=== PATIENT | male | born 1995 | race Caucasian/White ===

== ENCOUNTER 2021-10-10 18:08 | Emergency (ER) | payer OTHER, MEDICAID, SELFPAY ==
[2021-10-10 18:09] VITALS: PULSE 105; O2SAT 96
--- NOTE | 2021-10-10 18:09 | DI.CT.S_ITS ---
PROCEDURE: CT HEAD/BRAIN WO CON INDICATIONS: change in seizure pattern TECHNIQUE: Noncontrast 4.5 mm thick angled axial sections acquired from the foramen magnum to the vertex, with coronal and sagittal reformats. For radiation dose reduction, the following was used: automated exposure control, adjustment of mA and/or kV according to patient size. COMPARISON: None. FINDINGS: Image quality: Excellent. CSF spaces: Basal cisterns are patent. No extra-axial fluid collections. Ventricles are normal in size and shape. Brain: No midline shift. No intracranial masses or hemorrhage. Barber-white matter interface is normal. Skull and face: Calvarium and visualized facial bones are intact, without suspicious lesions. Sinuses: Visualized sinuses and mastoids are clear. IMPRESSION: No acute intracranial abnormality. Dictated by: Hemanth Kay M.D. on 10/10/2021 at 18:36 Approved by: Hemanth Kay M.D. on 10/10/2021 at 18:36
--- NOTE | 2021-10-10 18:09 | ED_ITS ---
HPI - Seizure General Chief Complaint: Seizure Stated Complaint: seizure Time Seen by Provider: 10/10/21 18:09 History of Present Illness HPI Narrative: 26M nonsmoker with history of seizures presents by EMS for evaluation of a witnessed generalized tonic/clonic seizure lasting 60 seconds with a typical postictal phase. Patient has had rare seizures since he was young and does not take any medications. His cousin works with him and told the paramedics his last seizure was a few months ago. Patient denies any recent trauma, fever chills, nausea, vomiting or other illness. He denies any dietary or medication change in in fact takes no prescription medications. He does state that he has been drinking a bit more than usual but certainly has not cut back and has never had any withdrawal type symptoms or episodes. He is largely at his baseline on arrival. He denies any prodromal symptoms. Review of Systems Review of Systems Narrative: GENERAL: Denies chills, fatigue, malaise, fever, sweats. HEENT: Denies sinus pain, ear pain, sore throat, difficulty swallowing, dizzines s. RESPIRATORY: Denies dyspnea, cough, wheezing, hemoptysis, sputum. CARDIOVASCULAR: Denies chest pain, palpitations, orthopnea, edema, GASTROINTESTINAL: Denies nausea, vomiting, abdominal pain, diarrhea, constipation, melena. : Denies dysuria, frequency, incontinence, hematuria, urinary retention. MUSCULOSKELETAL: denies weakness, joint pain, or bony pain SKIN: Denies rash, skin lesions, or other NEUROLOGIC: See HPI PSYCHIATRIC: No concerning psychosocial issues. 12 point review of systems is negative except for those stated above Patient History Social History Smoking Status: Never smoker Exam Narrative Exam Narrative: GENERAL: [26 year old patient appears stated age. Well-developed patient, in mild distress. GCS 14 (slightly confused) HEAD: Atraumatic. Normocephalic. EYES: Pupils equal round and reactive. Extraocular motions intact. No scleral icterus. No injection or drainage. ENT: Nose without bleeding, purulent drainage. Throat without erythema, tonsillar hypertrophy or exudate. Airway patent. NECK: Trachea midline. Non tender CARDIOVASCULAR: Regular rate and rhythm without murmurs, gallops, or rubs. RESPIRATORY: Clear to auscultation. Breath sounds equal bilaterally. No wheezes, rales, or rhonchi. GASTROINTESTINAL: Abdomen soft, non-tender, nondistended. EXTREMITIES: No edema or joint tenderness. BACK: Nontender without deformity or crepitance. No flank tenderness. NEURO: AOx3. SKIN: No rash or erythema of visible areas Initial Vital Signs Initial Vital Signs: Vital Signs Pulse Rate 105 H 10/10/21 18:09 Pulse Oximetry 96 10/10/21 18:09 Course Orders Ordered: ED Orders 10/10/21 18:09 CT head/brain wo con Stat CMP [Comprehensive Metabolic Panel] Stat Complete Blood Count AUTO DIFF Stat Ethanol (ETOH) Stat Magnesium Stat Prolactin Stat Urine Drug Screen, Rapid Stat EKG-12 Lead Stat Vital Signs Vital signs: Vital Signs - 8 hr 10/10/21 18:11 Temperature 98.1 F Pulse Rate 113 H Respiratory Rate 16 Blood Pressure 142/78 H Pulse Oximetry 96 MDM - Seizure Lab Data Result diagrams: 10/10/21 18:09 10/10/21 18:09 Labs: Lab Results 10/10/21 10/10/21 Range/Units 18:09 18:09 WBC 12.8 H (4.5-11.0) X10^3/uL RBC 5.18 (4.5-5.9) X10^6/uL Hgb 15.9 (13.5-17.5) g/dL Hct 48.0 (41-53) % MCV 92.6 (80-100) fL MCH 30.6 (26-34) PG MCHC 33.0 (30-36) % RDW 13.2 (11.6-14.8) % Plt Count 327 (150-400) X10^3/uL Neut % (Auto) 61.2 (50-75) % Lymph % (Auto) 28.3 (25-40) % [place] % (Auto) 7.2 (3-14) % Eos % (Auto) 2.5 (2-4) % Baso % (Auto) 0.8 (0-2) % Neut # (Auto) 7800 H (5027-9176) /uL Lymph # (Auto) 3600 (9207-4360) /uL [place] # (Auto) 900 (0-900) /uL Eos # (Auto) 300 (0-450) /uL Baso # (Auto) 100 (0-100) /uL Sodium 143 (137-145) mmol/L Potassium 3.7 (3.4-5.1) mmol/L Chloride 103 (98-107) mmol/L Carbon Dioxide 14 L (22-32) mmol/L BUN 14 (9-20) mg/dL Creatinine 1.52 H (0.66-1.25) mg/dL Estimated GFR > 60 (>60) mL/min BUN/Creatinine Ratio 9.2 (6-22) Glucose 113 H (70-100) mg/dL Calcium 9.7 (8.4-10.2) mg/dL Magnesium 2.0 (1.6-2.3) mg/dL Total Bilirubin 0.7 (0.2-1.3) mg/dL AST 36 (17-59) IU/L ALT 24 (<50) IU/L Alkaline Phosphatase 81 (38-126) U/L Total Protein 9.5 H (6.3-8.2) g/dL Albumin 5.4 H (3.5-5.0) g/dL Globulin 4.1 (1.7-4.1) g/dL Albumin/Globulin Ratio 1.3 (1.0-2.8) Prolactin 104.5 H (3.7-17.9) ng/mL Ethyl Alcohol < 10 ( - 10) mg/dL Imaging Data CT scan - head: Radiologist's Impression: [place] [address] CT Scan Report Signed Patient: Omid Pierce MR#: [id number] : 1995 Acct:[id number] Age/Sex: 26 / M Date of Service: 10/10/21 Loc: ED Accession Number: [id number] ?? Procedure: CT head/brain wo con Ordering Provider: Stevo Langford D.O. PROCEDURE:? CT HEAD/BRAIN WO CON ? INDICATIONS:? change in seizure pattern ? TECHNIQUE:? Noncontrast 4.5 mm thick angled axial sections acquired from the foramen magnum to the vertex, with coronal and sagittal reformats.? For radiation dose reduction, the following was used:? automated exposure control, adjustment of mA and/or kV according to patient size.? ? COMPARISON:? None. ? FINDINGS:? Image quality:? Excellent.? ? CSF spaces:? Basal cisterns are patent.? No extra-axial fluid collections.? Ventricles are normal in size and shape.? ? Brain:? No midline shift.? No intracranial masses or hemorrhage.? Barber-white matter interface is normal.? ? Skull and face:? Calvarium and visualized facial bones are intact, without suspicious lesions.? ? Sinuses:? Visualized sinuses and mastoids are clear.? ? IMPRESSION:? No acute intracranial abnormality. ? ? Dictated by: Hemanth Kay M.D. on 10/10/2021 at 18:36 ? ? Approved by: Hemanth Kay M.D. on 10/10/2021 at 18:36 ? MDM Narrative Medical decision making narrative: Patient had a brief breakthrough seizures that was witnessed, typical postictal phase and observed for 2 hours. Labs and imaging are reassuring. There are no significant findings. Patient had historically controlled his seizure activity with the use of THC and admits that he has been cutting back on his use a bit lately. There are no signs of intracranial hemorrhage, mass, meningitis or other significant abnormality that would require specific or immediate intervention. Return precautions discussed and questions answered to his apparent satisfaction Discharge Plan Departure Patient Disposition: Home Clinical Impression: Epileptic seizure Instructions: DI for Seizure Disorder -- Adult Activity Restrictions/Additional Instructions: *You have been diagnosed with [seizure] *What to do: *Please continue to take your regular medications as directed. [ ] New medication prescriptions sent to your pharmacy: [ ] [ ] New medication written as a paper prescription [x ] No new medications given *Please follow up with your primary care provider in 2-3 days, call for an appointment. Let them know you were seen in the Emergency Department and that we ask that you be seen in follow up. We will electronically transmit a record of today's note if your PCP is in our system *If you do not have a primary care provider please contact the [facility] Resource line at [phone]. They will ask some questions about your medical history and help get you set up with a doctor in the community. *Return to Emergency Department if you should have any new, worsening or concerning symptoms, such as [fever greater than 101 F, shaking chills, worsening pain, persistent vomiting or other bothersome symptoms] Referrals: Justice Delatorre MD [Non-Staff] -
[2021-10-10 18:10] VITALS: BP 143/92; PULSE 106; RESP 14; O2SAT 95
[2021-10-10 18:11] VITALS: BP 142/78; PULSE 113; RESP 16; TEMP 36.7; O2SAT 96
[2021-10-10 18:19] LABS: Add Manual Diff / Slide Review NO; Basophils Absolute Auto 100 /uL (0-100); Basophils Percent Auto 0.8 % (0-2); Eosinophils Absolute Auto 300 /uL (0-450); Eosinophils Percent Auto 2.5 % (2-4); Hemoglobin 15.9 g/dL (13.5-17.5); Lymphocytes Absolute Auto 3600 /uL (1100-4500); Lymphocytes Percent Auto 28.3 % (25-40); Mean Corpuscular Hemoglobin 30.6 PG (26-34); Mean Corpuscular Volume 92.6 fL (80-100); Monocytes Absolute Auto 900 /uL (0-900); Monocytes Percent Auto 7.2 % (3-14); Neutrophils Absolute Auto 7800 /uL (1500-7000); Neutrophils Percent Auto 61.2 % (50-75); Platelet Count 327 X10^3/uL (150-400); Red Blood Cell Count 5.18 X10^6/uL (4.5-5.9); Red Cell Distribution Width 13.2 % (11.6-14.8); White Blood Cell Count 12.8 X10^3/uL (4.5-11.0)
[2021-10-10 18:30] VITALS: BP 131/84; PULSE 92; RESP 13; O2SAT 93
[2021-10-10 18:30] LABS: Alanine Aminotransferase 24 IU/L (<50); Albumin 5.4 g/dL (3.5-5.0); Albumin Globulin Ratio 1.3 (1.0-2.8); Alkaline Phosphatase 81 U/L (38-126); Aspartate Aminotransferase 36 IU/L (17-59); BUN Creatinine Ratio 9.2 (6-22); Bilirubin Total 0.7 mg/dL (0.2-1.3); Blood Urea Nitrogen 14 mg/dL (9-20); Calcium 9.7 mg/dL (8.4-10.2); Carbon Dioxide 14 mmol/L (22-32); Chloride 103 mmol/L (98-107); Estimated Glomerular Filt Rate > 60 mL/min (>60); Ethanol (ETOH) < 10 mg/dL; Globulin 4.1 g/dL (1.7-4.1); Glucose 113 mg/dL (70-100); HEMOLYSIS 21 (0-50); Potassium 3.7 mmol/L (3.4-5.1); Sodium 143 mmol/L (137-145); Total Protein 9.5 g/dL (6.3-8.2)
[2021-10-10 18:46] LABS: Prolactin 104.5 ng/mL (3.7-17.9)
[2021-10-10 19:00] VITALS: BP 116/83; PULSE 82; RESP 14; O2SAT 98
== END 2021-10-10 19:26 | disposition home or self-care (01) ==
PROVIDERS: Emergency Provider Emergency Medicine
DX: G40.909 Epilepsy, unspecified, not intractable, without status epilepticus (principal)
CPT/HCPCS: 36415; 70450; 80053; 80320; 83735; 84146; 85025; 93005; 99283

== ENCOUNTER 2021-12-25 13:14 | Emergency (ER) | payer OTHER, MEDICAID, SELFPAY ==
[2021-12-25 13:19] VITALS: BP 137/83; PULSE 115; RESP 12; TEMP 36.8; O2SAT 96; BMI 28.1
--- NOTE | 2021-12-25 13:29 | PC.NURSE ---
Patient bit tongue, no active bleeding. Small abrasion noted to right forehead.
[2021-12-25 13:30] VITALS: BP 135/75; PULSE 97; RESP 17; O2SAT 96
[2021-12-25] MEDS: SODIUM CHLORIDE 0.9% 1,000 ML 1000 ML IV (13:47)
[2021-12-25 13:55] LABS: Add Manual Diff / Slide Review NO; Basophils Absolute Auto 100 /uL (0-100); Basophils Percent Auto 0.9 % (0-2); Eosinophils Absolute Auto 300 /uL (0-450); Eosinophils Percent Auto 2.1 % (2-4); Hematocrit 49.6 % (41-53); Hemoglobin 16.4 g/dL (13.5-17.5); Lymphocytes Absolute Auto 3900 /uL (1100-4500); Lymphocytes Percent Auto 24.9 % (25-40); Mean Corpuscular Hemoglobin 30.6 PG (26-34); Mean Corpuscular Volume 92.8 fL (80-100); Monocytes Absolute Auto 1200 /uL (0-900); Monocytes Percent Auto 7.4 % (3-14); Neutrophils Absolute Auto 10200 /uL (1500-7000); Neutrophils Percent Auto 64.7 % (50-75); Platelet Count 365 X10^3/uL (150-400); Red Blood Cell Count 5.35 X10^6/uL (4.5-5.9); Red Cell Distribution Width 13.3 % (11.6-14.8); White Blood Cell Count 15.7 X10^3/uL (4.5-11.0)
[2021-12-25 14:00] VITALS: BP 120/76; PULSE 83; RESP 17; O2SAT 96
[2021-12-25 14:01] LABS: Alanine Aminotransferase 59 IU/L (<50); Albumin 5.7 g/dL (3.5-5.0); Albumin Globulin Ratio 1.4 (1.0-2.8); Alkaline Phosphatase 91 U/L (38-126); Aspartate Aminotransferase 38 IU/L (17-59); BUN Creatinine Ratio 9.2 (6-22); Bilirubin Total 0.7 mg/dL (0.2-1.3); Blood Urea Nitrogen 13 mg/dL (9-20); Calcium 9.7 mg/dL (8.4-10.2); Carbon Dioxide 13 mmol/L (22-32); Chloride 102 mmol/L (98-107); Estimated Glomerular Filt Rate > 60 mL/min (>60); Ethanol (ETOH) < 10 mg/dL; Globulin 4.2 g/dL (1.7-4.1); Glucose 147 mg/dL (70-100); HEMOLYSIS < 15 (0-50); Potassium 4.3 mmol/L (3.4-5.1); Sodium 144 mmol/L (137-145); Total Protein 9.9 g/dL (6.3-8.2)
--- NOTE | 2021-12-25 14:21 | ED.SEIZURE ---
HPI - Seizure General Chief Complaint: Seizure Stated Complaint: Seizure Time Seen by Provider: 12/25/21 13:41 Source: EMS Mode of arrival: EMS History of Present Illness HPI Narrative: Patient is a 26-year-old male who presents with seizure a. He does have a history of epilepsy he states he is not on any antiseizure medication. He does smoke marijuana. He had a witnessed seizure at work. He fell and hit his head tonic clonic movements of the lasted under 1 minute. He did bite his tongue. No urinary incontinence or other incontinence. He was quite postictal for EMS but now feeling a bit better. Patient has been having increased seizure activity over last 8 months. He previously went many years without seizures. He admits to drinking alcohol than usual and had some alcohol intake last night. His last seizure was October 10. He says he was previously tried on 3 different antiseizure medications he did not like any of them and he stop taking. Related Data Previous Rx's Medication Instructions Recorded levetiracetam 500 mg tablet 500 mg PO Q12H #60 tabs 12/25/21 ([place]) Allergies Allergy/AdvReac Type Severity Reaction Status Date / Time No Known Drug Allergies Allergy Verified 12/25/21 13:25 Review of Systems Review of Systems Narrative: GENERAL: Denies chills,fever HEENT: Denies throat pain RESPIRATORY: Denies dyspnea, cough, wheezing CARDIOVASCULAR: Denies chest pain, palpitations GASTROINTESTINAL: Denies nausea, vomiting MUSCULOSKELETAL: Denies extremity pain, injury SKIN: No rash, no laceration, no pruritus NEUROLOGIC: Denies weakness, dizziness, headache, numbness 8 point review of systems is negative except for those stated above and HPI Patient History Social History Smoking Status: Never smoker Smoking Status: Never smoker alcohol intake frequency: 3 or more drinks per day Alcohol type: hard liquor Substance Use Type: marijuana Exam Initial Vital Signs Initial Vital Signs: Vital Signs Temperature 98.2 F 12/25/21 13:19 Pulse Rate 115 H 12/25/21 13:19 Respiratory Rate 12 12/25/21 13:19 Blood Pressure 137/83 12/25/21 13:19 Pulse Oximetry 96 12/25/21 13:19 Oxygen Delivery Method 12/25/21 13:19 GENERAL: Alert 26-year-old male slightly postictal and in no acute distress. HEENT: Head atraumatic, mild contusion left forehead,EOMI, pupils reactive, face symmetric, tongue injury CARDIOVASCULAR: Regular rate and rhythm without murmurs, rubs or gallops. RESPIRATORY: Breath sounds equal bilaterally, no wheezes rales or rhonchi. ABDOMEN: Soft, nontender. Normoactive bowel sounds all 4 quadrants. No guarding or rebound. EXTREMITIES: Normal range of motion, no clubbing or edema. Neurovascularly intact NEUROLOGICAL: Alert and oriented x4. City Clerk strength equal bilateral SKIN: Warm, dry, no laceration, no petechiae, no rashes or lesions. Course Orders Ordered: ED Orders 12/25/21 13:48 CBC Auto Diff [Complete Blood Count AUTO DIFF] Stat CMP [Comprehensive Metabolic Panel] Stat ETOH [Ethanol (ETOH)] Stat Discontinued Medications Sodium Chloride (Normal Saline 0.9%) 1,000 mls @ 1,000 mls/hr IV BOLUS ONE Stop: 12/25/21 14:40 Last Infusion: 12/25/21 15:07 Dose: 0 mls/hr Documented By: [facility] Admin: 12/25/21 13:47 Dose: 1,000 mls/hr Documented By: [facility] Vital Signs Vital signs: Vital Signs - 8 hr 12/25/21 13:19 12/25/21 15:00 12/25/21 14:30 Temperature 98.2 F Pulse Rate 115 H 94 H 78 Respiratory Rate 12 17 12 Blood Pressure 137/83 119/78 118/73 Pulse Oximetry 96 96 97 Oxygen Delivery Method Room Air Room Air Room Air 12/25/21 14:00 12/25/21 13:30 Temperature Pulse Rate 83 97 H Respiratory Rate 17 17 Blood Pressure 120/76 135/75 Pulse Oximetry 96 96 Oxygen Delivery Method Room Air Room Air MDM - Seizure Lab Data Result diagrams: 12/25/21 13:48 12/25/21 13:48 Labs: Lab Results 12/25/21 12/25/21 Range/Units 13:48 13:48 WBC 15.7 H (4.5-11.0) X10^3/uL RBC 5.35 (4.5-5.9) X10^6/uL Hgb 16.4 (13.5-17.5) g/dL Hct 49.6 (41-53) % MCV 92.8 (80-100) fL MCH 30.6 (26-34) PG MCHC 33.0 (30-36) % RDW 13.3 (11.6-14.8) % Plt Count 365 (150-400) X10^3/uL Neut % (Auto) 64.7 (50-75) % Lymph % (Auto) 24.9 L (25-40) % [place] % (Auto) 7.4 (3-14) % Eos % (Auto) 2.1 (2-4) % Baso % (Auto) 0.9 (0-2) % Neut # (Auto) 22067 H (5295-6691) /uL Lymph # (Auto) 3900 (6962-4670) /uL [place] # (Auto) 1200 H (0-900) /uL Eos # (Auto) 300 (0-450) /uL Baso # (Auto) 100 (0-100) /uL Sodium 144 (137-145) mmol/L Potassium 4.3 (3.4-5.1) mmol/L Chloride 102 (98-107) mmol/L Carbon Dioxide 13 L (22-32) mmol/L BUN 13 (9-20) mg/dL Creatinine 1.41 H (0.66-1.25) mg/dL Estimated GFR > 60 (>60) mL/min BUN/Creatinine Ratio 9.2 (6-22) Glucose 147 H (70-100) mg/dL Calcium 9.7 (8.4-10.2) mg/dL Total Bilirubin 0.7 (0.2-1.3) mg/dL AST 38 (17-59) IU/L ALT 59 H (<50) IU/L Alkaline Phosphatase 91 (38-126) U/L Total Protein 9.9 H (6.3-8.2) g/dL Albumin 5.7 H (3.5-5.0) g/dL Globulin 4.2 H (1.7-4.1) g/dL Albumin/Globulin Ratio 1.4 (1.0-2.8) Ethyl Alcohol < 10 ( - 10) mg/dL MDM Narrative Medical decision making narrative: The patient has a seizure history he has had increased seizures over the last few months. In fact his last seizure was 10/10/2021 he was seen evaluated here for the same. Patient states that he has actually been drinking more alcohol than normal drink last night. He had a negative head CT in September he is neurologically intact. I discussed with him starting antiseizure medications and having evaluation by Neurology. We also discussed the no driving and legal aspect. He understands all of this. He does not currently want an IV loading dose. He is not sure if he has been on Keppra before sounds as though he is drinking at least a few shots tonight but does not go through a whole 5th is of vodka. We discussed how to cut back slowly so that he does not have alcohol withdrawal seizures. He is interested in having a prescription of Keppra but not interested in taking it at this very moment. Discharge Plan Departure Patient Disposition: Home Clinical Impression: Epileptic seizure Instructions: DI for Seizure Disorder -- Adult Activity Restrictions/Additional Instructions: DO NOT DRIVE UNTIL EVALUATION BY NEUROLOGY *You have been diagnosed with seizure disorder *What to do: Recommend decreasing her alcohol slowly it may be causing increase in your seizures. Is also recommended that he start taking anti seizure medications and that he follow up closely within neurologist *Continue to take medications as directed Keppra 500 mg twice a day (this can be titrated) --> [place] [facility] You may also take B complex vitamin to help fight the fatigue associated with this medication *Follow up with your primary care provider in 2-3 days or call [phone] *Return to ER if you should have recurrent seizure, seizure lasting longer than 5 minute or any new, worsening or concerning symptoms Prescriptions: New levetiracetam [Keppra] 500 mg tablet 500 mg PO Q12H Qty: 60 0RF Referrals: Justice Delatorre MD [Non-Staff] - Visit Report Forms: Patient Portal/API
[2021-12-25 14:30] VITALS: BP 118/73; PULSE 78; RESP 12; O2SAT 97
[2021-12-25 15:00] VITALS: BP 119/78; PULSE 94; RESP 17; O2SAT 96
== END 2021-12-25 15:32 | disposition home or self-care (01) ==
PROVIDERS: Emergency Provider Emergency Medicine
DX: G40.909 Epilepsy, unspecified, not intractable, without status epilepticus (principal)
CPT/HCPCS: 80053; 80320; 85025; 96360; 99283; 99284